=== PATIENT | female | born 1960 | race Caucasian/White ===

== ENCOUNTER 2022-07-23 21:48 | Outpatient (REF) | payer BC, SELFPAY ==
[2022-07-23 22:40] LABS: Free T4 Free Thyroxine* 1.42 ng/dL (0.70-1.85)
== END 2022-07-23 21:49 | disposition home or self-care (01) ==
LOC: NPINS 21:48
PROVIDERS: PCP Physician Assistant Medical
DX: E03.9 Hypothyroidism, unspecified (principal)
CPT/HCPCS: 84439; 84443

== ENCOUNTER 2023-09-24 10:22 | Outpatient (CLI) | payer BC, SELFPAY | END 2023-09-24 10:23 | disposition home or self-care (01) | PROVIDERS: PCP Physician Assistant Medical; Visit Provider Physician Assistant Medical | DX: Z00.00 Encounter for general adult medical examination without abnormal findings (principal); E03.9 Hypothyroidism, unspecified; Z13.6 Encounter for screening for cardiovascular disorders | CPT/HCPCS: 80053; 80061; 84443 ==

== ENCOUNTER 2023-10-13 08:36 | Outpatient (CLI) | payer BC, SELFPAY ==
--- NOTE | 2023-10-13 09:20 | W.ANESCHARGE ---
Anesthesia Charges Start Date/Time Anesthesia Start Date: 10/13/23 Anesthesia Start Time: 09:17 Stop Date/Time Anesthesia Stop Date: 10/13/23 Anesthesia Stop Time: 10:04
--- NOTE | 2023-10-13 10:06 | W.ANESCHARGE ---
Anesthesia Charges Start Date/Time Anesthesia Start Date: 10/13/23 Anesthesia Start Time: 09:17 Stop Date/Time Anesthesia Stop Date: 10/13/23 Anesthesia Stop Time: 10:04
== END 2023-10-13 08:37 | disposition home or self-care (01) ==
LOC: OP CLINIC 08:37
PROVIDERS: PCP Physician Assistant Medical; Visit Provider Surgery
DX: Z12.11 Encounter for screening for malignant neoplasm of colon (principal); K63.5 Polyp of colon
CPT/HCPCS: 00811; 45385; 88305; J2704

== ENCOUNTER 2023-12-17 09:50 | Outpatient (CLI) | payer BC, SELFPAY ==
--- NOTE | 2023-12-17 10:15 | CRLHL7_ITS ---
For Patients: As a result of the Century Cures Act, medical imaging exams and procedure reports are released immediately into your electronic medical record. You may view this report before your referring provider. If you have questions, please contact your health care provider. BILATERAL DIGITAL SCREENING MAMMOGRAM WITH TOMOSYNTHESIS AND COMPUTER-AIDED DETECTION CLINICAL HISTORY: Routine screening exam. COMPARISON: 12/24/2020, 02/14/2019. TECHNIQUE: Digital mammogram in CC and MLO projections including computer-aided detection (CAD). Tomosynthesis utilized. BREAST COMPOSITION: The breasts are heterogeneously dense, which may obscure small masses. FINDINGS: RIGHT Breast: No suspicious findings. Benign cystic changes RIGHT breast. LEFT Breast: Nodular density upper outer quadrant 3 cm from the nipple. IMPRESSION: LEFT breast asymmetry/mass. RECOMMENDATIONS: Additional mammographic views of the LEFT breast including 3D spot compression CC/MLO. LEFT breast ultrasound may also be required. BI-RADS Category 0: Incomplete: Need Additional Imaging Evaluation and/or Prior Mammograms for Comparison [facility] will contact the patient for follow-up. A lay language report of this examination will be provided to the patient. Dictated by Brando Traore MD @ 12/17/2023 11:57:24 AM jj/Dictated by: Brando Traore MD @ 12/17/2023 11:57:00 AM (Electronically Signed)
== END 2023-12-17 09:51 | disposition home or self-care (01) ==
LOC: MAMMO 09:52
PROVIDERS: PCP Physician Assistant Medical; Visit Provider Physician Assistant Medical
DX: Z12.31 Encounter for screening mammogram for malignant neoplasm of breast (principal); N63.20 Unspecified lump in the left breast, unspecified quadrant; R92.2 Inconclusive mammogram
CPT/HCPCS: 77063; 77067

== ENCOUNTER 2023-12-28 10:26 | Outpatient (CLI) | payer BC, SELFPAY ==
--- NOTE | 2023-12-28 10:45 | CRLHL7_ITS ---
For Patients: As a result of the Cures Act, medical imaging exams and procedure reports are released immediately into your electronic medical record. You may view this report before your referring provider. If you have questions, please contact your health care provider. DIGITAL DIAGNOSTIC LEFT MAMMOGRAM USING TOMOSYNTHESIS AND COMPUTER-AIDED DETECTION LEFT BREAST ULTRASOUND CLINICAL HISTORY: LEFT breast mass/asymmetry. COMPARISON: 12/17/2023, 12/24/2020. TECHNIQUE: Digital LEFT mammogram in two projections. Tomosynthesis and CAD utilized. Real-time ultrasound imaging of LEFT breast with imaging documentation. BREAST COMPOSITION: The breast is heterogeneously dense, which may obscure small masses. FINDINGS: 3D spot compression CC/MLO LEFT breast mammogram images submitted. Persistent nodular densities within the upper outer quadrant LEFT breast without architectural distortion. No suspicious calcifications or adenopathy. Targeted LEFT breast ultrasound performed 2 o`clock 4 cm from the nipple. Simple anechoic cyst is present measuring 2.0 x 0.9 x 2.1 cm. Additional simple cyst is present measuring 1.3 x 1.0 x 0.8 cm. IMPRESSION: Benign fibrocystic changes. No suspicious findings. RECOMMENDATIONS: Routine BILATERAL screening mammography. Results and recommendations discussed with the patient. BI-RADS Category 2: Benign A lay language report of this examination will be provided to the patient. Dictated by Brando Traore MD @ 12/28/2023 11:54:24 AM /Dictated by: Brando Traore MD @ 12/28/2023 11:54:00 AM (Electronically Signed)
--- NOTE | 2023-12-28 11:15 | CRLHL7_ITS ---
For Patients: As a result of the Century Cures Act, medical imaging exams and procedure reports are released immediately into your electronic medical record. You may view this report before your referring provider. If you have questions, please contact your health care provider. PLEASE SEE DIGITAL DIAGNOSTIC LEFT MAMMOGRAM PERFORMED SAME DAY CRL:[email or web address] stahl/Dictated by: Brando Traore MD @ 12/28/2023 11:54:00 AM (Electronically Signed)
== END 2023-12-28 10:27 | disposition home or self-care (01) ==
LOC: MAMMO 10:26
PROVIDERS: PCP Physician Assistant Medical; Visit Provider Physician Assistant Medical
DX: N63.20 Unspecified lump in the left breast, unspecified quadrant (principal); R92.8 Other abnormal and inconclusive findings on diagnostic imaging of breast
CPT/HCPCS: 76642; 77065; G0279

== ENCOUNTER 2024-10-06 08:27 | Outpatient (CLI) | payer BC, SELFPAY | END 2024-10-06 08:28 | disposition home or self-care (01) | LOC: NFLDREF 10-10 11:57 | PROVIDERS: PCP Physician Assistant Medical; Referring Provider Physician Assistant Medical; Visit Provider Physician Assistant Medical | DX: E03.9 Hypothyroidism, unspecified (principal); I10 Essential (primary) hypertension; R63.5 Abnormal weight gain; Z13.220 Encounter for screening for lipoid disorders; Z13.21 Encounter for screening for nutritional disorder | CPT/HCPCS: 80053; 80061; 82306; 84443 ==

== ENCOUNTER 2025-01-09 14:29 | Outpatient (CLI) | payer BC, SELFPAY | END 2025-01-09 14:30 | disposition home or self-care (01) | LOC: MAMMO 14:30 | PROVIDERS: PCP Physician Assistant Medical; Visit Provider Physician Assistant Medical | DX: Z12.31 Encounter for screening mammogram for malignant neoplasm of breast (principal); R92.333 Mammographic heterogeneous density, bilateral breasts | CPT/HCPCS: 77063; 77067 ==

== ENCOUNTER 2025-10-06 09:17 | Outpatient (CLI) | payer BC, SELFPAY | END 2025-10-06 09:18 | disposition home or self-care (01) | LOC: NFLDREF 10-22 18:07 | PROVIDERS: PCP Physician Assistant Medical; Referring Provider Physician Assistant Medical; Visit Provider Physician Assistant Medical | DX: Z00.00 Encounter for general adult medical examination without abnormal findings (principal); I10 Essential (primary) hypertension; E03.9 Hypothyroidism, unspecified | CPT/HCPCS: 80053; 80061; 84439; 84443 ==